=== PATIENT | male | born 1940 | race Hispanic/Latino ===

== ENCOUNTER → 2020-02-26 | Outpatient (CLI) | payer OTHER ==
[~2020-02-26] MED LIST: REGADENOSON 0.4 MG/5 ML PF SYG IVP SCH
== END | disposition home or self-care (01) ==
LOC: SHCH 08:19
PROVIDERS: ATTEND Internal Medicine Cardiovascular Disease
DX: I20.9 Angina pectoris, unspecified (principal); R06.09 Other forms of dyspnea; R07.9 Chest pain, unspecified; R53.83 Other fatigue
CPT/HCPCS: 78452; 93017; 96374; A9500 ×2; J2785

== ENCOUNTER 2020-05-15 16:26 | Inpatient (IN) | payer OTHER ==
[~2020-05-15] VITALS: Ht 162.6 cm; Wt 32.9 kg
[2020-05-15 16:54] LABS: BASOPHILS % (AUTO) 0.2 % (0.0-5.0); HEMATOCRIT 31.5 % (42-54); LYMPHOCYTES % (AUTO) 16.7 % (21.0-51.0); MEAN CORPUSCULAR HEMOGLOBIN 32.5 pg (27.0-33.0); MEAN CORPUSCULAR HGB CONC 35.2 g/dL (32.0-36.0); MEAN CORPUSCULAR VOLUME 92.1 fL (79-99); MONOCYTES % (AUTO) 6.5 % (3.0-13.0); NEUTROPHILS % (AUTO) 76.2 % (40.0-77.0); PLATELET COUNT (AUTO) 168 K/uL (130-400); RED BLOOD CELL COUNT(AUTO) 3.42 MIL/uL (4.50-6.20); RED CELL DISTRIBUTION WIDTH 12.2 % (11.0-15.5); WHITE BLOOD COUNT (AUTO) 4.6 K/uL (4.8-10.8)
[2020-05-15 17:02] LABS: ABG BASE EXCESS 0.5 mmol/L (-2.0-3.0); ABG HCO3 23.4 mmol/L (21.0-28.0); ABG OXYGEN SATURATION 89.7 % (95.0-99.0); ABG PCO2 33 mmHg (35-48)
[2020-05-15 17:10] LABS: CREATININE 1.4 mg/dL (0.5-1.5); POTASSIUM 4.9 mmol/L (3.5-5.1)
[2020-05-15] MEDS ORDERED: ASPIRIN 325 MG TABLET ONE (17:10)
[2020-05-15] MEDS ORDERED: DEXAMETHASONE SOD PHOSPHATE 10MG/ML 1ML VIAL ONE (17:10)
[2020-05-15] MEDS ORDERED: AZITHROMYCIN 250 MG TABLET PO ONE (17:11)
[2020-05-15] MEDS ORDERED: BENZONATATE 100 MG CAPSULE PO ONE (17:11)
[2020-05-15] MEDS ORDERED: CEFTRIAXONE SODIUM 1 GM ONE (17:11)
[2020-05-15 17:12] LABS: INR 1.04 (0.85-1.15); PROTHROMBIN TIME 11.1 SEC (9.6-11.6)
[2020-05-15] MEDS ORDERED: SODIUM CHLORIDE 0.9% 100 ML IV ONE (17:12)
[2020-05-15] MEDS ORDERED: ALBUTEROL INHALER 90MCG/INH IH ONE (17:12)
[2020-05-15 17:13] LABS: PARTIAL THROMBOPLASTIN TIME 31.1 SEC (26.3-35.5)
[2020-05-15 17:19] LABS: RAPID GROUP A STREP NEGATIVE (NEGATIVE)
[2020-05-15 17:23] LABS: ALBUMIN 2.5 g/dL (3.5-5.0); BILIRUBIN,TOTAL 0.5 mg/dL (0.2-1.0); TOTAL PROTEIN, SERUM 6.8 g/dL (6.0-8.3)
[2020-05-15 17:32] LABS: B-TYPE NATRIURETIC PEPTIDE 68 pg/mL (0-100)
[2020-05-15 18:06] LABS: APPEARANCE,URINE Cloudy (CLEAR); BILIRUBIN,URINE Negative (NEGATIVE); COLOR,URINE Yellow (YELLOW); GLUCOSE, URINE (UA) Negative (NEGATIVE); KETONES,URINE Trace mg/dL (NEGATIVE); LEUKOCYTE ESTERASE ,URINE Negative (NEGATIVE); NITRATE,URINE Negative (NEGATIVE); OCCULT BLOOD,URINE Moderate (NEGATIVE); PROTEIN,URINE 300 mg/dL (NEGATIVE); UROBILINOGEN,URINE 0.2 mg/dL (0.2-1.0)
[2020-05-15 18:28] LABS: BACTERIA,URINE Few /HPF (None Seen); SQUAMOUS EPITHELIAL CELL,UR Rare /HPF (0-2); WBC,URINE 0-1 /HPF (0-1)
[2020-05-15] MEDS: DEXAMETHASONE SOD PHOSPHATE 4 MG/ML 1ML VIAL IVP SCH (19:15)
[2020-05-15] MEDS ORDERED: SODIUM CHLORIDE 0.9% 1000ML 1,000 ML IV SCH (19:15)
[2020-05-15] MEDS: CEFTRIAXONE SODIUM 1 GM IVP SCH (19:15)
[2020-05-15] MEDS ORDERED: GUAIFENESIN-CODEINE 5 ML SYRUP PO PRN (19:15)
[2020-05-15] MEDS ORDERED: ONDANSETRON HCL 4 MG/2 ML VIAL IV PRN (19:15)
[2020-05-15] MEDS ORDERED: ERGOCALCIFEROL (VITAMIN D2) 50,000 UNIT CAPSULE PO ONE (19:15)
[2020-05-15] MEDS ORDERED: LACTULOSE 20 GM/30 ML UDCUP PO PRN (19:15)
[2020-05-15] MEDS ORDERED: DOXYCYCLINE 100MG+NS 250ML IV SCH (19:15)
[2020-05-15] MEDS ORDERED: PHARMACY COMMUNICATION**REMDESIVIR ORDER MISC SCH (19:15)
[2020-05-15] MEDS: FAMOTIDINE 20MG TAB 20 MG TAB PO SCH (21:00)
[2020-05-15] MEDS ORDERED: FAMOTIDINE 20MG TAB 20 MG TAB ONE (21:08)
[2020-05-15] MEDS ORDERED: ERGOCALCIFEROL (VITAMIN D2) 50,000 UNIT CAPSULE ONE (21:08)
[2020-05-15] MEDS ORDERED: DOXYCYCLINE 100MG+NS 250ML 250 ML IV ONE (21:09)
[2020-05-15] MEDS ORDERED: SODIUM CHLORIDE 0.9% 1000ML 1,000 ML IV ONE (21:10)
[2020-05-15 21:18] LABS: RETICULOCYTE % (AUTO) 0.59 % (0.42-2.23)
[2020-05-15 21:39] LABS: % IRON SATURATION 12.9 % (30-44)
[2020-05-15 21:41] LABS: HEMOGLOBIN A1C 6.9 % (4.0-6.0)
[2020-05-15 21:43] LABS: THYROID STIMULATING HORMONE 1.4 uIU/mL (0.36-3.74)
[2020-05-15 21:55] LABS: CRP QUANTITATIVE 317.6 mg/L (0.00-9.0)
[2020-05-16] MEDS ORDERED: SODIUM CHLORIDE 0.9% 250 ML IV ONE (04:41)
[2020-05-16] MEDS: CEFTRIAXONE SODIUM 1 GM IVP SCH ×2 (07:15→19:15)
[2020-05-16] MEDS ORDERED: ZINC SULFATE 220 CAPSULE ONE (07:53)
[2020-05-16] MEDS ORDERED: FAMOTIDINE 20MG TAB 20 MG TAB ONE (07:53)
[2020-05-16] MEDS ORDERED: ASCORBIC ACID 500 MG TAB ONE (07:53)
[2020-05-16] MEDS ORDERED: CEFTRIAXONE SODIUM 1 GM ONE ×2 (07:54→22:07)
[2020-05-16] MEDS ORDERED: ENOXAPARIN SODIUM 40 MG/0.4 ML SYRINGE SQ ONE (07:54)
[2020-05-16] MEDS: ZINC SULFATE 220 CAPSULE PO SCH (09:00)
[2020-05-16] MEDS: ENOXAPARIN SODIUM 40 MG/0.4 ML SYRINGE SQ SCH (09:00)
[2020-05-16] MEDS: ASCORBIC ACID 500 MG TAB PO SCH (09:00)
[2020-05-16] MEDS ORDERED: ALBUTEROL INHALER 90MCG/INH IH PRN (16:45)
[2020-05-16] MEDS: DEXAMETHASONE SOD PHOSPHATE 4 MG/ML 1ML VIAL IVP SCH (19:15)
[2020-05-16] MEDS: FAMOTIDINE 20MG TAB 20 MG TAB PO SCH (21:00)
[2020-05-16] MEDS ORDERED: DEXAMETHASONE SOD PHOSPHATE 4 MG/ML 1ML VIAL ONE (22:06)
[2020-05-16] MEDS ORDERED: FAMOTIDINE/PF 20 MG/2 ML VIAL IV ONE (22:07)
[2020-05-17] MEDS ORDERED: GUAIFENESIN-DM 200/20 MG 10 ML ONE (00:09)
[2020-05-17] MEDS ORDERED: CYAN500011 PO (02:45)
[2020-05-17] MEDS ORDERED: CHOL500050 PO (02:45)
[2020-05-17] MEDS ORDERED: [UNRECOGNIZED DRUG - OTHER] PO (02:45)
[2020-05-17] MEDS ORDERED: PUMPKIN PO (02:45)
[2020-05-17] MEDS ORDERED: LOSA50TA64 PO (02:45)
[2020-05-17] MEDS ORDERED: tumeric curcumin PO (02:45)
[2020-05-17] MEDS ORDERED: NIAC1CAP PO (02:45)
[2020-05-17] MEDS ORDERED: CALC-1220 PO (02:45)
[2020-05-17] MEDS ORDERED: FERR325T29 PO (02:45)
[2020-05-17] MEDS ORDERED: GLUC100019 PO (02:45)
[2020-05-17] MEDS ORDERED: ATOR10TA69 PO (02:45)
[2020-05-17] MEDS ORDERED: [UNRECOGNIZED DRUG - REMARK] PO (02:45)
[2020-05-17] MEDS ORDERED: CRAN500T2 PO (02:45)
[2020-05-17] MEDS ORDERED: [UNRECOGNIZED DRUG - OTHER] PO (02:45)
[2020-05-17] MEDS ORDERED: MULT-685 PO (02:45)
[2020-05-17] MEDS ORDERED: VITAMIN C PO (02:45)
[2020-05-17] MEDS ORDERED: ZINC PO (02:45)
[2020-05-17] MEDS ORDERED: [UNRECOGNIZED DRUG - OTHER] PO (02:45)
[2020-05-17 04:00] VITALS: BP 153/79
[2020-05-17] MEDS: CEFTRIAXONE SODIUM 1 GM IVP SCH ×2 (09:42→19:50)
[2020-05-17] MEDS: ASCORBIC ACID 500 MG TAB PO SCH (09:46)
[2020-05-17] MEDS: FAMOTIDINE 20MG TAB 20 MG TAB PO SCH ×2 (09:46→19:50)
[2020-05-17] MEDS: ZINC SULFATE 220 CAPSULE PO SCH (09:47)
[2020-05-17] MEDS: ENOXAPARIN SODIUM 40 MG/0.4 ML SYRINGE SQ SCH (09:47)
[2020-05-17 12:40] VITALS: BP 179/92
[2020-05-17 16:00] VITALS: BP 139/65
[2020-05-17] MEDS ORDERED: COMPOUND IV REFRIGERATED 1 EACH IVSOLN MISC PRN (17:30)
[2020-05-17] MEDS ORDERED: REMDESIVIR (EUA) 520 200 MG in SODIUM CHLORIDE 0.9% 250 ML IV SCH (18:00)
[2020-05-17] MEDS: DEXAMETHASONE SOD PHOSPHATE 4 MG/ML 1ML VIAL IVP SCH (19:20)
[2020-05-17 20:00] VITALS: BP 160/78
[2020-05-17] MEDS: ENOXAPARIN SODIUM 30 MG/0.3 ML SQ SCH (22:04)
[2020-05-17] MEDS: PHARMACY COMMUNICATION MISC SCH (22:04)
[2020-05-17 23:51] VITALS: BP 162/75
[2020-05-18 04:42] LABS: HEMATOCRIT 29.9 % (42-54); LYMPHOCYTES % (AUTO) 11.7 % (21.0-51.0); MEAN CORPUSCULAR HEMOGLOBIN 31.6 pg (27.0-33.0); MEAN CORPUSCULAR HGB CONC 34.1 g/dL (32.0-36.0); MEAN CORPUSCULAR VOLUME 92.6 fL (79-99); MONOCYTES % (AUTO) 4.1 % (3.0-13.0); NEUTROPHILS % (AUTO) 83.2 % (40.0-77.0); PLATELET COUNT (AUTO) 252 K/uL (130-400); RED BLOOD CELL COUNT(AUTO) 3.23 MIL/uL (4.50-6.20); RED CELL DISTRIBUTION WIDTH 12.5 % (11.0-15.5); WHITE BLOOD COUNT (AUTO) 5.1 K/uL (4.8-10.8)
[2020-05-18 04:46] VITALS: BP 159/74
[2020-05-18 04:55] LABS: POTASSIUM 5.3 mmol/L (3.5-5.1)
[2020-05-18 04:56] LABS: CRP QUANTITATIVE 193.5 mg/L (0.00-9.0)
[2020-05-18 07:00] VITALS: BP 141/75
[2020-05-18 08:00] VITALS: BP_SYST 178; BP_SYST 186; BP_DIAS 91; BP_DIAS 94
[2020-05-18] MEDS ORDERED: SODIUM POLYSTYRENE SULFONATE 15 GM/60 ML ML PO SCH (08:30)
[2020-05-18] MEDS ORDERED: DEXTROSE 50%-WATER 50 ML DISP.SYRIN IV SCH (08:45)
[2020-05-18] MEDS ORDERED: INSULIN HUMULIN R 100 UNIT/ML 3ML SQ SCH (08:45)
[2020-05-18] MEDS: FAMOTIDINE 20MG TAB 20 MG TAB PO SCH ×2 (09:55→20:34)
[2020-05-18] MEDS: CEFTRIAXONE SODIUM 1 GM IVP SCH ×2 (09:55→20:38)
[2020-05-18] MEDS: ZINC SULFATE 220 CAPSULE PO SCH (09:56)
[2020-05-18] MEDS: ASCORBIC ACID 500 MG TAB PO SCH (09:56)
[2020-05-18] MEDS: ENOXAPARIN SODIUM 30 MG/0.3 ML SQ SCH ×2 (09:57→20:38)
[2020-05-18 12:00] VITALS: BP 186/91
[2020-05-18 16:00] VITALS: BP 183/103
[2020-05-18] MEDS: REMDESIVIR (EUA) 520 100 MG in SODIUM CHLORIDE 0.9% 250 ML IV SCH (17:49)
[2020-05-18] MEDS: DEXAMETHASONE SOD PHOSPHATE 4 MG/ML 1ML VIAL IVP SCH (19:40)
[2020-05-19 00:45] VITALS: BP 161/80
[2020-05-19 04:00] VITALS: BP 153/84
[2020-05-19 05:14] LABS: CRP QUANTITATIVE 117.8 mg/L (0.00-9.0)
[2020-05-19] MEDS: PHARMACY COMMUNICATION MISC SCH (06:00)
[2020-05-19 08:30] VITALS: BP 120/77
[2020-05-19] MEDS: DEXAMETHASONE SOD PHOSPHATE 4 MG/ML 1ML VIAL IVP SCH (08:51)
[2020-05-19] MEDS: CEFTRIAXONE SODIUM 1 GM IVP SCH ×2 (08:51→20:18)
[2020-05-19] MEDS: ZINC SULFATE 220 CAPSULE PO SCH (08:52)
[2020-05-19] MEDS: ASCORBIC ACID 500 MG TAB PO SCH (08:52)
[2020-05-19] MEDS: ENOXAPARIN SODIUM 30 MG/0.3 ML SQ SCH ×2 (08:54→20:19)
[2020-05-19] MEDS: FAMOTIDINE 20MG TAB 20 MG TAB PO SCH ×2 (08:54→20:18)
[2020-05-19 11:00] VITALS: BP 131/63
[2020-05-19 14:13] LABS: HEMATOCRIT 30.6 % (42-54); LYMPHOCYTES % (AUTO) 9.6 % (21.0-51.0); MEAN CORPUSCULAR HEMOGLOBIN 31.7 pg (27.0-33.0); MEAN CORPUSCULAR HGB CONC 34.3 g/dL (32.0-36.0); MEAN CORPUSCULAR VOLUME 92.4 fL (79-99); MONOCYTES % (AUTO) 3.7 % (3.0-13.0); NEUTROPHILS % (AUTO) 85.5 % (40.0-77.0); PLATELET COUNT (AUTO) 310 K/uL (130-400); RED BLOOD CELL COUNT(AUTO) 3.31 MIL/uL (4.50-6.20); RED CELL DISTRIBUTION WIDTH 12.7 % (11.0-15.5); WHITE BLOOD COUNT (AUTO) 5.2 K/uL (4.8-10.8)
[2020-05-19 14:23] LABS: CREATININE 1.1 mg/dL (0.5-1.5)
[2020-05-19 16:00] VITALS: BP 157/83
[2020-05-19] MEDS: REMDESIVIR (EUA) 520 100 MG in SODIUM CHLORIDE 0.9% 250 ML IV SCH (18:26)
[2020-05-19 21:19] VITALS: BP 152/81
[2020-05-20 04:00] VITALS: BP 165/86
[2020-05-20 06:31] LABS: BASOPHILS % (AUTO) 0.4 % (0.0-5.0); EOSINOPHILS % (AUTO) 0.2 % (0.0-8.0); HEMATOCRIT 30.8 % (42-54); LYMPHOCYTES % (AUTO) 16.6 % (21.0-51.0); MEAN CORPUSCULAR HEMOGLOBIN 31.9 pg (27.0-33.0); MEAN CORPUSCULAR HGB CONC 34.4 g/dL (32.0-36.0); MEAN CORPUSCULAR VOLUME 92.8 fL (79-99); MONOCYTES % (AUTO) 7.8 % (3.0-13.0); NEUTROPHILS % (AUTO) 72.7 % (40.0-77.0); PLATELET COUNT (AUTO) 323 K/uL (130-400); RED BLOOD CELL COUNT(AUTO) 3.32 MIL/uL (4.50-6.20); RED CELL DISTRIBUTION WIDTH 12.6 % (11.0-15.5); WHITE BLOOD COUNT (AUTO) 5.1 K/uL (4.8-10.8)
[2020-05-20 06:36] LABS: POTASSIUM 4.1 mmol/L (3.5-5.1)
[2020-05-20 08:00] VITALS: BP 122/70
[2020-05-20] MEDS: ASCORBIC ACID 500 MG TAB PO SCH (09:10)
[2020-05-20] MEDS: FAMOTIDINE 20MG TAB 20 MG TAB PO SCH ×2 (09:10→20:32)
[2020-05-20] MEDS: ZINC SULFATE 220 CAPSULE PO SCH (09:10)
[2020-05-20] MEDS: CEFTRIAXONE SODIUM 1 GM IVP SCH ×2 (09:11→20:32)
[2020-05-20] MEDS: ENOXAPARIN SODIUM 30 MG/0.3 ML SQ SCH ×2 (09:12→20:35)
[2020-05-20 12:00] VITALS: BP 144/87
[2020-05-20] MEDS: REMDESIVIR (EUA) 520 100 MG in SODIUM CHLORIDE 0.9% 250 ML IV SCH (17:30)
[2020-05-20 18:28] VITALS: BP 106/67
[2020-05-20 19:00] VITALS: BP 161/86
[2020-05-20] MEDS: DEXAMETHASONE SOD PHOSPHATE 4 MG/ML 1ML VIAL IVP SCH (19:49)
[2020-05-20] MEDS: ATORVASTATIN CALCIUM 10 MG TABLET PO SCH (20:32)
[2020-05-21] VITALS: BP 135/76
[2020-05-21 04:00] VITALS: BP 128/74
[2020-05-21 05:52] LABS: BASOPHILS % (AUTO) 0.3 % (0.0-5.0); EOSINOPHILS % (AUTO) 0.3 % (0.0-8.0); HEMATOCRIT 31.5 % (42-54); LYMPHOCYTES % (AUTO) 18.8 % (21.0-51.0); MEAN CORPUSCULAR HEMOGLOBIN 31.9 pg (27.0-33.0); MEAN CORPUSCULAR HGB CONC 34.3 g/dL (32.0-36.0); MEAN CORPUSCULAR VOLUME 92.9 fL (79-99); MONOCYTES % (AUTO) 6.4 % (3.0-13.0); NEUTROPHILS % (AUTO) 67.8 % (40.0-77.0); PLATELET COUNT (AUTO) 346 K/uL (130-400); RED BLOOD CELL COUNT(AUTO) 3.39 MIL/uL (4.50-6.20); RED CELL DISTRIBUTION WIDTH 12.4 % (11.0-15.5); WHITE BLOOD COUNT (AUTO) 3.8 K/uL (4.8-10.8)
[2020-05-21 06:06] LABS: ALBUMIN 2.2 g/dL (3.5-5.0); BILIRUBIN,TOTAL 0.3 mg/dL (0.2-1.0); CRP QUANTITATIVE 53.9 mg/L (0.00-9.0)
[2020-05-21] MEDS: CEFTRIAXONE SODIUM 1 GM IVP SCH ×2 (07:51→20:38)
[2020-05-21] MEDS: FERROUS SULFATE 325 MG TABLET.DR PO SCH (07:52)
[2020-05-21] MEDS: FAMOTIDINE 20MG TAB 20 MG TAB PO SCH ×2 (07:52→20:37)
[2020-05-21] MEDS: ASCORBIC ACID 500 MG TAB PO SCH (07:52)
[2020-05-21] MEDS: LOSARTAN 50 MG TABLET PO SCH (07:52)
[2020-05-21] MEDS: ZINC SULFATE 220 CAPSULE PO SCH (07:52)
[2020-05-21] MEDS: ENOXAPARIN SODIUM 30 MG/0.3 ML SQ SCH ×2 (07:53→20:49)
[2020-05-21 08:05] VITALS: BP 139/79
[2020-05-21 14:39] VITALS: BP 123/79
[2020-05-21] MEDS: REMDESIVIR (EUA) 520 100 MG in SODIUM CHLORIDE 0.9% 250 ML IV SCH (18:18)
[2020-05-21 20:00] VITALS: BP 126/72
[2020-05-21] MEDS: DEXAMETHASONE SOD PHOSPHATE 4 MG/ML 1ML VIAL IVP SCH (20:37)
[2020-05-21] MEDS: ATORVASTATIN CALCIUM 10 MG TABLET PO SCH (20:38)
[2020-05-22 00:41] VITALS: BP 120/61
[2020-05-22 04:25] VITALS: BP 119/64
[2020-05-22 05:30] LABS: BASOPHILS % (AUTO) 0.5 % (0.0-5.0); EOSINOPHILS % (AUTO) 0.8 % (0.0-8.0); HEMATOCRIT 32.2 % (42-54); LYMPHOCYTES % (AUTO) 19.1 % (21.0-51.0); MEAN CORPUSCULAR HEMOGLOBIN 31.8 pg (27.0-33.0); MEAN CORPUSCULAR HGB CONC 33.5 g/dL (32.0-36.0); MEAN CORPUSCULAR VOLUME 94.7 fL (79-99); MONOCYTES % (AUTO) 6.6 % (3.0-13.0); NEUTROPHILS % (AUTO) 61.8 % (40.0-77.0); PLATELET COUNT (AUTO) 366 K/uL (130-400); RED CELL DISTRIBUTION WIDTH 12.5 % (11.0-15.5); WHITE BLOOD COUNT (AUTO) 3.9 K/uL (4.8-10.8)
[2020-05-22 05:52] LABS: ALBUMIN 2.2 g/dL (3.5-5.0); BILIRUBIN,TOTAL 0.3 mg/dL (0.2-1.0); CREATININE 1.1 mg/dL (0.5-1.5); POTASSIUM 5.3 mmol/L (3.5-5.1); TOTAL PROTEIN, SERUM 6.1 g/dL (6.0-8.3)
[2020-05-22] MEDS: PHARMACY COMMUNICATION MISC SCH (06:00)
[2020-05-22] MEDS: FERROUS SULFATE 325 MG TABLET.DR PO SCH (08:54)
[2020-05-22] MEDS: LOSARTAN 50 MG TABLET PO SCH (08:54)
[2020-05-22] MEDS: ZINC SULFATE 220 CAPSULE PO SCH (08:54)
[2020-05-22] MEDS: ASCORBIC ACID 500 MG TAB PO SCH (08:54)
[2020-05-22] MEDS: FAMOTIDINE 20MG TAB 20 MG TAB PO SCH (08:54)
[2020-05-22] MEDS: ENOXAPARIN SODIUM 30 MG/0.3 ML SQ SCH (08:55)
[2020-05-22] MEDS: CEFTRIAXONE SODIUM 1 GM IVP SCH (08:56)
[2020-05-22 09:07] VITALS: BP 133/76
[2020-05-22] MEDS ORDERED: ASPI-1005 PO (09:22)
[2020-05-22] MEDS ORDERED: ALBUHFA IH (09:22)
[2020-05-22] MEDS ORDERED: DEXA6TAB PO (09:22)
[2020-05-22 13:04] VITALS: BP 133/74
[2020-05-22 17:28] VITALS: BP 113/73
== END 2020-05-22 18:28 | disposition home or self-care (01) | DRG 177 ==
LOC: EDH 16:26 → EDHIP 19:10 → 4AH 05-17 00:23
PROVIDERS: ADMIT Internal Medicine; ATTEND Internal Medicine
PROC: XW13325 Transfusion of Convalescent Plasma (Nonautologous) into Peripheral Vein, Percutaneous Approach, New Technology Group 5 (ICD-10-PCS; principal; 2020-05-16)
PROC: XW033E5 Introduction of Remdesivir Anti-infective into Peripheral Vein, Percutaneous Approach, New Technology Group 5 (ICD-10-PCS; 2020-05-17)
DX: U07.1 COVID-19 (principal); J96.01 Acute respiratory failure with hypoxia; J12.82 Pneumonia due to coronavirus disease 2019; E87.1 Hypo-osmolality and hyponatremia; E44.0 Moderate protein-calorie malnutrition; N17.9 Acute kidney failure, unspecified; Z68.1 Body mass index [BMI] 19.9 or less, adult; D64.9 Anemia, unspecified; N18.9 Chronic kidney disease, unspecified; E11.22 Type 2 diabetes mellitus with diabetic chronic kidney disease; I12.9 Hypertensive chronic kidney disease with stage 1 through stage 4 chronic kidney disease, or unspecified chronic kidney disease; E78.5 Hyperlipidemia, unspecified; E87.5 Hyperkalemia; E87.8 Other disorders of electrolyte and fluid balance, not elsewhere classified; F02.80 Dementia in other diseases classified elsewhere, unspecified severity, without behavioral disturbance, psychotic disturbance, mood disturbance, and anxiety; J44.9 Chronic obstructive pulmonary disease, unspecified; R74.01 Elevation of levels of liver transaminase levels; E78.00 Pure hypercholesterolemia, unspecified; G30.9 Alzheimer's disease, unspecified; Z79.01 Long term (current) use of anticoagulants; Z87.891 Personal history of nicotine dependence
CPT/HCPCS: 36415; 36600; 71045; 80048; 80053; 81001; 82270; 82550; 82728; 82803; 83036; 83540; 83550; 83605; 83615; 83880; 84132; 84145; 84443; 84484; 85025; 85045; 85378; 85610; 85730; 86140; 86156; 86850; 86870; 86900; 86901; 86927; 87040; 87426; 87804; 87880; 93005; 94760; 99291; G0378; J0696; J1100; J1650; J1815; J3490; J7030; J7050; J7070; U0003

== ENCOUNTER 2022-09-25 14:22 | Emergency (ER) | payer OTHER ==
[~2022-09-25] VITALS: Ht 162.6 cm; Wt 72.6 kg
[~2022-09-25 14:22] MED LIST changes: +ALBUHFA IH; +ASPI-1005 PO; +ATOR10TA69 PO; +CALC-1220 PO; +CHOL500050 PO; +CRAN500T4 PO; +CYAN500011 PO; +DEXA6TAB PO; +FERR325T29 PO; +GLUC100019 PO; +LOSA50TA64 PO; +MULT-685 PO; +NIAC1CAP PO; +PUMPKIN PO; -REGADENOSON 0.4 MG/5 ML PF SYG IVP SCH; +VITAMIN C PO; +ZINC PO; +[UNRECOGNIZED DRUG - OTHER] PO; +[UNRECOGNIZED DRUG - OTHER] PO; +[UNRECOGNIZED DRUG - OTHER] PO; +[UNRECOGNIZED DRUG - REMARK] PO; +tumeric curcumin PO
[2022-09-25 14:23] VITALS: BP 154/73
[2022-09-25 15:08] LABS: BASOPHILS % (AUTO) 0.4 % (0.0-5.0); EOSINOPHILS % (AUTO) 2.2 % (0.0-8.0); HEMATOCRIT 36.4 % (42-54); MEAN CORPUSCULAR HEMOGLOBIN 31.5 pg (27.0-33.0); MEAN CORPUSCULAR HGB CONC 33.2 g/dL (32.0-36.0); MEAN CORPUSCULAR VOLUME 94.8 fL (79-99); MONOCYTES % (AUTO) 7.3 % (3.0-13.0); NEUTROPHILS % (AUTO) 65.7 % (40.0-77.0); PLATELET COUNT (AUTO) 242 K/uL (130-400); RED BLOOD CELL COUNT(AUTO) 3.84 MIL/uL (4.50-6.20); RED CELL DISTRIBUTION WIDTH 13.2 % (11.0-15.5); WHITE BLOOD COUNT (AUTO) 5.6 K/uL (4.8-10.8)
[2022-09-25 15:35] LABS: ALBUMIN 3.4 g/dL (3.5-5.0); CREATININE 1.1 mg/dL (0.5-1.5); POTASSIUM 4.2 mmol/L (3.5-5.1); TOTAL PROTEIN, SERUM 7.1 g/dL (6.0-8.3)
== END 2022-09-25 16:15 | disposition home or self-care (01) ==
LOC: EDH 14:22
DX: I16.0 Hypertensive urgency (principal); I10 Essential (primary) hypertension; E03.9 Hypothyroidism, unspecified; Z79.52 Long term (current) use of systemic steroids; Z79.82 Long term (current) use of aspirin; Z79.899 Other long term (current) drug therapy; Z98.890 Other specified postprocedural states
CPT/HCPCS: 36415; 70450; 71045; 80053; 85025; 93005